=== PATIENT | male | born 1960 | race Caucasian/White ===

== ENCOUNTER 2024-03-21 18:46 | Emergency (ER) | payer MEDICAID, SELFPAY ==
--- NOTE | 2024-03-21 | ECG_ITS ---
Test Reason : CHEST PAIN Blood Pressure : / mmHG Vent. Rate : 091 BPM Atrial Rate : 091 BPM P-R Int : 122 ms QRS Dur : 080 ms QT Int : 334 ms P-R-T Axes : 064 047 047 degrees QTc Int : 410 ms Normal sinus rhythm Normal ECG No previous ECGs available Referred By: Generic ED Physician Electronically Signed By:MOOKIE MCNULTY MD
--- NOTE | ~2024-03-21 | XR_ITS ---
EXAMINATION: XR CHEST CLINICAL INFORMATION: Cough, dyspnea. COMPARISON: None available. TECHNIQUE: 2 views of the chest were obtained. FINDINGS: Normal heart size. Focal consolidative airspace opacities projecting over the right lower lung with some degree of associated volume loss and a small amount of pleural fluid. Central bronchovascular thickening. No pneumothorax. Background of emphysema. Thoracic spondylosis. No acute osseous findings. XR/XR chest 2V IMPRESSION: Focal consolidative opacities in the right lower lobe with associated small amount of pleural fluid and some degree of volume loss. Findings could indicate aspiration, pneumonia and partial atelectasis. However, clinical correlation and a short-term follow-up CT chest in 3 months is recommended to rule out underlying malignancy. Central bronchovascular thickening could be seen with pulmonary hypertension or small airways disease. Emphysema.
[2024-03-21 19:18] VITALS: BP 127/83; PULSE 109; RESP 18; TEMP 36.8; O2SAT 96; BMI 25.4
--- NOTE | 2024-03-21 19:27 | ED_ITS ---
HPI - General Adult General Chief complaint: Upper Respiratory Symptoms Stated complaint: ?pneumonia Time Seen by Provider: 03/22/24 00:10 History of Present Illness ED Provider: Inez FAIRCHILD narrative: The patient is a 63-year-old male who has a history of smoking and is still a smoker. He does not have a primary care doctor. He has on no medications. He says that he is felt unwell for about a week or 2 with increasing coughing. He has pain in his chest when he coughs. He has been using Mucinex at home. Finally he decided to come to the emergency room for evaluation. Thinks he might have pneumonia. He has not had a fever. 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 Related Data Previous Rx's ?Medication ?Instructions ?Recorded cefuroxime axetil 500 mg tablet 500 mg PO BID #20 tabs 03/22/24 doxycycline monohydrate 100 mg 100 mg PO BID #20 caps 03/22/24 capsule Allergies Allergy/AdvReac Type Severity Reaction Status Date / Time No Known Allergies Allergy Verified 03/21/24 19:24 Review of Systems 2 Review of Systems: Yes all other systems are reviewed and are negative [facility] Social History Social History Smoked in Last 30 Days: Yes Use of substances other than those prescribed or required for medical reasons: No Advance Directives: No Advance Directives Information Provided: Yes Do you have a plan to hurt others: No Plan Physical Exam ED Vital Signs: Vital Signs - 24 hr 03/21/24 19:18 03/21/24 22:43 03/22/24 00:30 Temperature 98.2 F 97.6 F 97.6 F Pulse Rate 109 H 108 H 108 H Respiratory Rate 18 20 20 Blood Pressure 127/83 149/84 H 149/84 H Pulse Oximetry 96 93 93 Oxygen Delivery Method Room Air Room Air Room Air BMI result Body Mass Index 25.4 Const Other: The patient was awake and alert. The patient looks somewhat chronically ill. He looked fatigued but not in distress. HENMT Other: Face is symmetrical. Mucous membranes moist. Eyes Other: Pupils are round equal, conjunctivae are clear Neck Other: No cervical adenopathy, no JVD Resp Other: Mild crackles at the right base. No cinthia wheezing. Cardio Rate: regular rate Rhythm: regular rhythm Heart sounds: S1 normal heart sound present and S2 normal heart sound present Skin Other: Skin is pale and dry. Neuro Other: The patient is awake and alert. Cranial nerves are grossly intact. Extrem Other: The patient does not seem to have any the patient has impressive chronic changes to the left hand and wrist and forearm consistent with a previous significant injury. Course Course Course Narrative: RME performed by Magda Sawyer PA-C. Patient is a 63 year old assigned male at presenting to the emergency department with a cough. Detailed physical exam and review of systems are deferred to the respiratory clinician. EKG, labs, imaging, and swabs ordered. Patient placed back in the waiting room pending room availability and results. Medications Administered Discontinued Medications Generic Name Dose Route Start Last Admin Trade Name Freq PRN Reason Stop Dose Admin Cefuroxime Axetil 500 mg 03/22/24 00:18 03/22/24 00:28 Cefuroxime Axetil 500 Mg Tablet PO 03/22/24 00:19 500 mg ONCE ONE Administration Doxycycline Monohydrate 100 mg 03/22/24 00:18 03/22/24 00:28 Doxycycline Monohydrate 100 Mg Capsule PO 03/22/24 00:19 100 mg ONCE ONE Administration Medical Decision Making Medical Decision Making MDM Narrative: The patient is a 63-year-old male who has been unwell with respiratory symptoms for over a week. Chest x-ray is suggestive of a possible pneumonia. He is hemodynamically stable and has good oxygenation on room air. He was eager to be discharged. He will be started on cefuroxime and doxycycline. Unfortunately the patient does not have a primary care doctor. Also he has a smoker. The patient is encouraged try to get a primary care doctor and to try to reduce smoking. He should return if worse. Lab Data 03/21/24 19:41 03/21/24 19:41 Labs: Lab Results 03/21/24 Range/Units 19:41 WBC 14.1 H (4.8-10.8) X10*3/uL RBC 4.70 (4.60-5.80) X10*6/uL Hgb 13.9 L (14.0-18.0) g/dl Hct 42.7 (42.0-52.0) % MCV 90.9 (80.0-98.0) fL MCH 29.6 (27.0-33.0) pg MCHC 32.6 (31.0-36.0) g/dl RDW 13.2 (11.0-16.0) % Plt Count 252 (160-400) X10*3/uL MPV 9.2 L (9.4-12.4) fL Immature Gran % (Auto) 0.9 H (0.0-0.4) % Neut % (Auto) 85.0 H (45-73) % Lymph % (Auto) 8.5 L (20-40) % Mineral % (Auto) 5.0 (2-11) % Eos % (Auto) 0.1 (0-4) % Baso % (Auto) 0.5 (0-2) % Lymph # (Auto) 1.2 (1.2-4.9) X10*3/uL Mineral # (Auto) 0.7 (0.1-1.2) X10*3/uL Eos # (Auto) 0.0 (0.0-0.4) X10*3/uL Baso # (Auto) 0.1 (0.0-0.2) X10*3/uL Abs Immat Gran (auto) 0.13 H (0.00-0.03) X10*3/uL Absolute Neuts (auto) 12.0 H (2.0-8.3) x10*3/uL Absolute Nucleated RBC 0.000 (0.0-0.012) X10*3/uL Nucleated RBC % (auto) 0.0 (0.0-0.2) /100WBC Sodium 142 (135-145) mmol/L Potassium 4.0 (3.3-5.1) mmol/L Chloride 102 (96-108) mmol/L Carbon Dioxide 31 H (22-29) mmol/L Anion Gap 13 (12-20) BUN 18 H (9-16) mg/dL Creatinine 0.71 (0.5-1.4) mg/dL Estim Creat Clear Calc 118.4 Estimated GFR > 60 Random Glucose 121 H (60-115) mg/dL Calcium 10.0 (8.4-10.2) mg/dL Magnesium 2.2 (1.6-2.6) mg/dL Total Bilirubin 0.2 (0.0-1.0) mg/dL AST 22 (5-37) U/L ALT 28 (0-40) U/L Alkaline Phosphatase 126 H (39-117) U/L Total Protein 7.4 (6.5-8.0) g/dL Albumin 3.3 L (3.5-5.0) g/dL Influenza Type A (PCR) NEGATIVE (Negative) Influenza Type B (PCR) NEGATIVE (Negative) RSV RNA Qual (PCR) NEGATIVE (Negative) SARS-CoV-2 RNA (RT-PCR) NEGATIVE (Negative) Discharge Plan Discharge Clinical Impression: Pneumonia Patient Disposition: Home, Self-Care Additional Instructions: I believe you may have a pneumonia in your right lower lung. Please take the 2 antibiotics prescribed. Each of these antibiotics should be taken 2 times a day. Drink a lot of fluids. Please do your best to try to reduce your smoking. Please work on getting a primary care doctor. Return to the emergency room if you feel significantly worse. Prescriptions: New doxycycline monohydrate 100 mg capsule 100 mg PO BID Qty: 20 0RF cefuroxime axetil 500 mg tablet 500 mg PO BID Qty: 20 0RF Interventions: ED Discharge Assessment Last Done: 03/22/24 00:30 Discharge Date/Time: 03/22/24 00:31 Print Language: Hebrew
[2024-03-21 19:46] LABS: MANUAL DIFF FLAG NO
[2024-03-21 19:47] LABS: Basophils Absolute Auto 0.1 X10*3/uL (0.0-0.2); Basophils Percent Auto 0.5 % (0-2); Eosinophils Percent Auto 0.1 % (0-4); Hematocrit 42.7 % (42.0-52.0); Hemoglobin 13.9 g/dl (14.0-18.0); Imm Gran Abs Auto 0.13 X10*3/uL (0.00-0.03); Imm Gran Pct Auto 0.9 % (0.0-0.4); Lymphocytes Absolute Auto 1.2 X10*3/uL (1.2-4.9); Lymphocytes Percent Auto 8.5 % (20-40); Mean Corpuscular HGB Conc 32.6 g/dl (31.0-36.0); Mean Corpuscular Hemoglobin 29.6 pg (27.0-33.0); Mean Corpuscular Volume 90.9 fL (80.0-98.0); Mean Platelet Volume 9.2 fL (9.4-12.4); Monocytes Absolute Auto 0.7 X10*3/uL (0.1-1.2); Platelet Count 252 X10*3/uL (160-400); Red Cell Distribution Width 13.2 % (11.0-16.0); White Blood Count 14.1 X10*3/uL (4.8-10.8)
[2024-03-21 20:12] LABS: Alanine Aminotransferase 28 U/L (0-40); Albumin Level 3.3 g/dL (3.5-5.0); Alkaline Phosphatase 126 U/L (39-117); Anion Gap 13 (12-20); Aspartate Amino Transferase 22 U/L (5-37); Bilirubin Total 0.2 mg/dL (0.0-1.0); Blood Urea Nitrogen 18 mg/dL (9-16); Carbon Dioxide 31 mmol/L (22-29); Chloride 102 mmol/L (96-108); Creatinine Clr Calc Pharmacy 118.4; Estimated Glomerular Filt Rate > 60; Glucose Random 121 mg/dL (60-115); Magnesium 2.2 mg/dL (1.6-2.6); Sodium 142 mmol/L (135-145); Total Protein 7.4 g/dL (6.5-8.0)
[2024-03-21 20:23] LABS: Influenza A PCR NEGATIVE (Negative); Influenza B PCR NEGATIVE (Negative); Resp Syncy Virus RNA Qual PCR NEGATIVE (Negative); SARS COV2 PCR INHOUSE NEGATIVE (Negative)
[2024-03-21 22:43] VITALS: BP 149/84; PULSE 108; RESP 20; TEMP 36.4; O2SAT 93
[2024-03-22] MEDS: cefuroxime axetiL 500 MG TABLET PO (00:28)
[2024-03-22] MEDS: Doxycycline Monohydrate 100 MG CAPSULE PO (00:28)
[2024-03-22 00:30] VITALS: BP 149/84; PULSE 108; RESP 20; TEMP 36.4; O2SAT 93
== END 2024-03-22 00:31 | disposition home or self-care (01) ==
PROVIDERS: Physician Assistant Medical; Emergency Provider Emergency Medicine
DX: J18.9 Pneumonia, unspecified organism (principal); R05.9 Cough, unspecified; F17.210 Nicotine dependence, cigarettes, uncomplicated; Z03.818 Encounter for observation for suspected exposure to other biological agents ruled out
CPT/HCPCS: 0241U; 36415; 71046; 80053; 83735; 85025; 93005; 99283; 99284

== ENCOUNTER → 2024-03-21 20:05 | Outpatient (BNV) | payer MEDICAID, SELFPAY | PROVIDERS: Emergency Provider Emergency Medicine; Visit Provider Internal Medicine Cardiovascular Disease | DX: R07.9 Chest pain, unspecified (principal) | CPT/HCPCS: 93010 ==